=== PATIENT | male | born 1995 | race Caucasian/White ===

== ENCOUNTER 2020-06-28 16:09 | Outpatient (CLI) | payer OTHER ==
--- NOTE | 2020-06-28 16:25 | XRAY Report ---
PROCEDURE: Ribs w/PA Chest RT INDICATIONS: RIB PAIN, RIGHT SIDED TECHNIQUE: 2 views of the right ribs were acquired, along with a single view chest. COMPARISON: None FINDINGS: Surgical changes and devices: None. Bones and chest wall: No fractures or dislocations. No suspicious bony lesions. Overlying soft tis sues appear unremarkable. Lungs and pleura: No pleural effusions or pneumothorax. Lungs appear clear. Mediastinum: Mediastinal contours appear normal. Heart size is normal. IMPRESSION: No evidence of displaced right rib fracture. No evidence of acute pulmonary process. Reviewed by: Fred Lynch MD on 06/28/2020 4:23 PM PST Approved by: Fred Lynch MD on 06/28/2020 4:23 PM PST Station ID: [id number]
== END 2020-06-28 23:59 | disposition home or self-care (01) ==
LOC: DI.S 16:09
PROVIDERS: ATTEND Physician Assistant Medical
DX: R07.81 Pleurodynia (principal)